=== PATIENT | female | born 1970 | race Two or more races ===

== ENCOUNTER 2021-01-23 02:48 | Inpatient (IN) | payer BC, OTHER ==
[~2021-01-23] VITALS: Ht 165.1 cm; Wt 79.3 kg
[2021-01-23 03:49] LABS: Basophils # (auto) 0.1 10 ^3/uL (0-0.2); Basophils % (auto) 0.4 % (0.0-2.0); Eosinophils # (auto) 0.1 10 ^3/uL (0-0.8); Hematocrit 43.8 % (36.0-46.0); Hemoglobin 14.7 g/dL (12.2-16.2); Lymphocytes # (auto) 2.1 10 ^3/uL (0.4-5.4); Lymphocytes % (auto) 15.9 % (10.0-50.0); Mean Corpuscular Hemoglobin 29.8 pg (28.0-32.0); Mean Corpuscular Hgb Conc. 33.7 g/dL (32.0-36.0); Mean Corpuscular Volume 88.6 fL (80.0-100.0); Monocytes # (auto) 0.5 10 ^3/uL (0-1.3); Monocytes % (auto) 3.8 % (0.0-12.0); Neutrophils # (auto) 10.6 10 ^3/uL (1.6-8.6); Neutrophils % (auto) 78.9 % (37.0-80.0); Nucleated Red Blood Cells % 0.1 %; Platelet Count (auto) 287 10^3/uL (140-450); Red Blood Cells 4.94 10^6/uL (4.0-5.20); Red Cell Distribution Width 13.2 % (11.8-14.3); White Blood Cell 13.4 10^3/uL (4.4-10.8)
[2021-01-23 04:06] LABS: Calcium 9.2 mg/dL (8.5-10.1); Potassium 3.3 mmol/L (3.5-5.1)
[2021-01-23 04:11] LABS: Albumin 4.1 g/dL (3.4-5.0); BUN/Creatinine Ratio 22.5; Bilirubin, Total 0.7 mg/dL (0.2-1.0); Total Protein 7.6 g/dL (6.4-8.2)
[2021-01-23] MEDS ORDERED: fentaNYL CITRATE 100 MCG/2 ML VL IV ONE (04:45)
[2021-01-23] MEDS ORDERED: ONDANSETRON HCL 4 MG/2 ML VIAL IV ONE ×2 (04:45→07:30)
[2021-01-23 05:21] LABS: Urine Bacteria FEW /hpf (None Seen); Urine Blood 3+ /uL (Negative); Urine Mucus FEW (None Seen); Urine Specific Gravity 1.021 (1.001-1.035); Urine WBC 47 /hpf (0 - 5)
[2021-01-23] MEDS ORDERED: IOHEXOL 300 MG/ML 100ML BOTTLE IJ ONE (05:48)
[2021-01-23] MEDS ORDERED: SODIUM CHLORIDE 0.9% 3,000 ML IV ONE (07:15)
[2021-01-23] MEDS ORDERED: cefTRIAXone 1GM/50ML D5W 50 ML IV ONE ×2 (07:30→13:45)
[2021-01-23] MEDS ORDERED: KETOROLAC TROMETH 30 MG/ML 1ML VIAL IV ONE (07:30)
[2021-01-23] MEDS ORDERED: TAMSULOSIN HYDROCHLORIDE 0.4 MG CAP PO ONE (07:30)
[2021-01-23] MEDS ORDERED: POTASSIUM EFFERVESENT TAB 25 MEQ PO ONE (07:30)
[2021-01-23] MEDS ORDERED: MORPHINE SULF INJ 2 MG/ML SYRINGE 1ML IV PRN ×4 (12:45→13:45)
[2021-01-23] MEDS ORDERED: NITROGLYCERIN 0.4 MG SL TAB SL PRN ×2 (12:45→13:45)
[2021-01-23] MEDS ORDERED: ONDANSETRON HCL 4 MG/2 ML VIAL IV PRN ×2 (13:15→13:45)
[2021-01-23] MEDS ORDERED: LORazepam 0.5 MG TAB PO PRN (13:45)
[2021-01-23] MEDS ORDERED: ALUM & MAG HYDROX-SIMETH LIQ(MAALOX) 30 ML PO PRN (13:45)
[2021-01-23] MEDS ORDERED: hydrALAZINE HCL 20 MG/ML VL IV PRN (13:45)
[2021-01-23] MEDS: SOD CHL 0.9%/ KCL 20MEQ 1,000 ML IV SCH ×2 (14:14→22:16)
[2021-01-23 14:49] VITALS: BP 129/73
[2021-01-23 14:51] LABS: Urine Bacteria FEW /hpf (None Seen); Urine Blood 3+ /uL (Negative); Urine Mucus FEW (None Seen); Urine Specific Gravity 1.022 (1.001-1.035); Urine WBC 55 /hpf (0 - 5)
[2021-01-23 14:59] LABS: Alcohol, Urine < 3.0 mg/dL (0-10); Amphetamine Screen, Urine NEGATIVE (NEGATIVE); Barbiturate Scree,Urine NEGATIVE (NEGATIVE); Benzodiazephine Screen, Urine NEGATIVE (NEGATIVE); Cannabinoid Screen, Urine POSITIVE (NEGATIVE); Cocaine Screen, Urine NEGATIVE (NEGATIVE); Opiate Scree,Urine NEGATIVE (NEGATIVE); Phencyclidine Screen, Urine NEGATIVE (NEGATIVE)
[2021-01-23] MEDS: HYDROcodone-ACET 5/325MG TAB PO PRN ×2 (15:24→22:15)
[2021-01-23] MEDS ORDERED: LISI-275 PO (15:26)
[2021-01-23] MEDS ORDERED: ESCI5TAB PO (15:26)
[2021-01-23] MEDS ORDERED: MULTTAB99 GT (15:26)
[2021-01-23] MEDS ORDERED: CHOL20007 PO (15:26)
[2021-01-23 16:16] LABS: Cholesterol 252 mg/dL (< 200); HDL Cholesterol 51 mg/dL (40-59); LDL Cholesterol 171 mg/dL (< 100); Triglycerides 193 mg/dL (< 150)
[2021-01-23 17:00] VITALS: BP 122/70
[2021-01-23] MEDS: ACETAMINOPHEN 325 MG TAB PO PRN (18:46)
[2021-01-23] MEDS: FAMOTIDINE (10MG/ML) 2ML VL IV SCH (21:43)
[2021-01-23] MEDS: ATORVASTATIN 20 MG TAB PO SCH ×2 (21:43→21:59)
[2021-01-23] MEDS: LISINOPRIL 5 MG TAB PO SCH (21:59)
[2021-01-23 22:41] VITALS: BP 129/81
[2021-01-24 05:00] VITALS: BP 141/86
[2021-01-24] MEDS: SOD CHL 0.9%/ KCL 20MEQ 1,000 ML IV SCH ×3 (06:09→22:49)
[2021-01-24 07:16] LABS: Basophils # (auto) 0 10 ^3/uL (0-0.2); Basophils % (auto) 0.7 % (0.0-2.0); Eosinophils # (auto) 0.1 10 ^3/uL (0-0.8); Eosinophils % (auto) 3.2 % (0.0-7.0); Hematocrit 39.5 % (36.0-46.0); Lymphocytes # (auto) 1.8 10 ^3/uL (0.4-5.4); Lymphocytes % (auto) 39.5 % (10.0-50.0); Mean Corpuscular Hemoglobin 31.4 pg (28.0-32.0); Mean Corpuscular Hgb Conc. 35.5 g/dL (32.0-36.0); Mean Corpuscular Volume 88.5 fL (80.0-100.0); Monocytes # (auto) 0.3 10 ^3/uL (0-1.3); Monocytes % (auto) 6.7 % (0.0-12.0); Neutrophils # (auto) 2.3 10 ^3/uL (1.6-8.6); Neutrophils % (auto) 49.9 % (37.0-80.0); Nucleated Red Blood Cells % 0.1 %; Platelet Count (auto) 220 10^3/uL (140-450); Red Blood Cells 4.47 10^6/uL (4.0-5.20); Red Cell Distribution Width 13.1 % (11.8-14.3); White Blood Cell 4.5 10^3/uL (4.4-10.8)
[2021-01-24 07:38] LABS: INR 0.97 (0.9-1.15); Partial Thromboplastin Time 26.1 sec (23.0-31.2)
[2021-01-24 07:41] LABS: Albumin 3.6 g/dL (3.4-5.0); Calcium 8.7 mg/dL (8.5-10.1); Magnesium 2.3 mg/dL (1.6-2.6); Potassium 4.1 mmol/L (3.5-5.1)
[2021-01-24 07:44] LABS: BUN/Creatinine Ratio 15.6; Phosphorus 3.1 mg/dL (2.5-4.90); Total Protein 6.8 g/dL (6.4-8.2)
[2021-01-24] MEDS: CALCIUM W/VIT D (600MG/400IU) TAB PO SCH (08:50)
[2021-01-24] MEDS: CEFTRIAXONE SODIUM 2 GM in D5W 5% 50 ML IV SCH (08:51)
[2021-01-24] MEDS: FAMOTIDINE (10MG/ML) 2ML VL IV SCH ×2 (08:52→21:48)
[2021-01-24] MEDS: ENOXAPARIN SOD 40 MG/0.4 ML SYRINGE SC SCH (08:53)
[2021-01-24 09:00] VITALS: BP 133/73
[2021-01-24] MEDS: ACETAMINOPHEN 325 MG TAB PO PRN ×2 (09:18→21:51)
[2021-01-24] MEDS ORDERED: CITALOPRAM HYDROBR 20 MG TAB PO SCH (10:00)
[2021-01-24 12:44] VITALS: BP 117/88
[2021-01-24] MEDS: HYDROcodone-ACET 5/325MG TAB PO PRN (15:23)
[2021-01-24 17:00] VITALS: BP 122/78
[2021-01-24] MEDS: DOCUSATE SOD 100 MG CAP PO PRN (18:45)
[2021-01-24] MEDS: ATORVASTATIN 20 MG TAB PO SCH (21:38)
[2021-01-24] MEDS: LISINOPRIL 5 MG TAB PO SCH (21:48)
[2021-01-24 22:00] VITALS: BP 139/77
[2021-01-25 05:24] VITALS: BP 137/78
[2021-01-25 05:42] LABS: Basophils # (auto) 0 10 ^3/uL (0-0.2); Basophils % (auto) 0.6 % (0.0-2.0); Eosinophils # (auto) 0.2 10 ^3/uL (0-0.8); Eosinophils % (auto) 3.7 % (0.0-7.0); Hematocrit 38.8 % (36.0-46.0); Hemoglobin 13.5 g/dL (12.2-16.2); Lymphocytes # (auto) 2.1 10 ^3/uL (0.4-5.4); Lymphocytes % (auto) 44.6 % (10.0-50.0); Mean Corpuscular Hemoglobin 30.8 pg (28.0-32.0); Mean Corpuscular Hgb Conc. 34.9 g/dL (32.0-36.0); Mean Corpuscular Volume 88.1 fL (80.0-100.0); Monocytes # (auto) 0.3 10 ^3/uL (0-1.3); Monocytes % (auto) 6.1 % (0.0-12.0); Neutrophils # (auto) 2.1 10 ^3/uL (1.6-8.6); Nucleated Red Blood Cells % 0.1 %; Platelet Count (auto) 229 10^3/uL (140-450); White Blood Cell 4.7 10^3/uL (4.4-10.8)
[2021-01-25 06:13] LABS: Potassium 3.9 mmol/L (3.5-5.1)
[2021-01-25 06:20] LABS: Albumin 3.3 g/dL (3.4-5.0); BUN/Creatinine Ratio 16.9; Calcium 8.4 mg/dL (8.5-10.1)
[2021-01-25 06:23] LABS: Bilirubin, Total 0.8 mg/dL (0.2-1.0); Total Protein 6.5 g/dL (6.4-8.2)
[2021-01-25] MEDS: CALCIUM W/VIT D (600MG/400IU) TAB PO SCH (09:17)
[2021-01-25] MEDS: ENOXAPARIN SOD 40 MG/0.4 ML SYRINGE SC SCH (09:18)
[2021-01-25 09:19] VITALS: BP 120/76
[2021-01-25] MEDS: FAMOTIDINE (10MG/ML) 2ML VL IV SCH ×2 (09:19→21:52)
[2021-01-25] MEDS: SOD CHL 0.9%/ KCL 20MEQ 1,000 ML IV SCH ×2 (09:19→15:45)
[2021-01-25] MEDS: HYDROcodone-ACET 5/325MG TAB PO PRN ×2 (10:33→11:39)
[2021-01-25] MEDS: CEFTRIAXONE SODIUM 2 GM in D5W 5% 50 ML IV SCH (11:39)
[2021-01-25 13:00] VITALS: BP 121/74
[2021-01-25 17:10] VITALS: BP 137/84
[2021-01-25] MEDS: ACETAMINOPHEN 325 MG TAB PO PRN (20:22)
[2021-01-25] MEDS: LISINOPRIL 5 MG TAB PO SCH (21:53)
[2021-01-25] MEDS: ATORVASTATIN 20 MG TAB PO SCH (21:53)
[2021-01-25 22:00] VITALS: BP 131/89
[2021-01-26 05:00] VITALS: BP 116/73
[2021-01-26 07:12] LABS: BUN/Creatinine Ratio 16.9; Calcium 9.3 mg/dL (8.5-10.1)
[2021-01-26 07:13] LABS: Basophils # (auto) 0 10 ^3/uL (0-0.2); Basophils % (auto) 0.3 % (0.0-2.0); Eosinophils # (auto) 0.2 10 ^3/uL (0-0.8); Eosinophils % (auto) 3.7 % (0.0-7.0); Hematocrit 41.8 % (36.0-46.0); Hemoglobin 14.7 g/dL (12.2-16.2); Lymphocytes # (auto) 2.1 10 ^3/uL (0.4-5.4); Lymphocytes % (auto) 39.3 % (10.0-50.0); Mean Corpuscular Hemoglobin 30.8 pg (28.0-32.0); Mean Corpuscular Volume 87.8 fL (80.0-100.0); Monocytes # (auto) 0.4 10 ^3/uL (0-1.3); Monocytes % (auto) 7.5 % (0.0-12.0); Neutrophils # (auto) 2.6 10 ^3/uL (1.6-8.6); Neutrophils % (auto) 49.2 % (37.0-80.0); Nucleated Red Blood Cells % 0.1 %; Platelet Count (auto) 255 10^3/uL (140-450); Red Blood Cells 4.76 10^6/uL (4.0-5.20); Red Cell Distribution Width 12.6 % (11.8-14.3); White Blood Cell 5.2 10^3/uL (4.4-10.8)
[2021-01-26 08:39] VITALS: BP 129/86
[2021-01-26] MEDS: ENOXAPARIN SOD 40 MG/0.4 ML SYRINGE SC SCH (08:47)
[2021-01-26] MEDS: CALCIUM W/VIT D (600MG/400IU) TAB PO SCH (08:48)
[2021-01-26] MEDS: DOCUSATE SOD 100 MG CAP PO PRN (08:48)
[2021-01-26] MEDS: ACETAMINOPHEN 325 MG TAB PO PRN (08:48)
[2021-01-26] MEDS: FAMOTIDINE (10MG/ML) 2ML VL IV SCH (08:56)
[2021-01-26] MEDS: CEFTRIAXONE SODIUM 2 GM in D5W 5% 50 ML IV SCH (10:23)
[2021-01-26 12:44] VITALS: BP 126/85
== END 2021-01-26 14:40 | disposition home or self-care (01) | DRG 872 ==
LOC: ER 02:54 → TELE 02:55 → TELE-WESTW 13:50
PROVIDERS: ADMIT Hospitalist; ATTEND Internal Medicine
DX: A41.9 Sepsis, unspecified organism (principal); N13.6 Pyonephrosis; N20.2 Calculus of kidney with calculus of ureter; E66.9 Obesity, unspecified; E78.5 Hyperlipidemia, unspecified; E87.6 Hypokalemia; F12.90 Cannabis use, unspecified, uncomplicated; F32.9 Major depressive disorder, single episode, unspecified; Z20.822 Contact with and (suspected) exposure to COVID-19; I10 Essential (primary) hypertension; K57.30 Diverticulosis of large intestine without perforation or abscess without bleeding; K76.0 Fatty (change of) liver, not elsewhere classified; Z80.0 Family history of malignant neoplasm of digestive organs; Z85.028 Personal history of other malignant neoplasm of stomach; Z87.442 Personal history of urinary calculi; Z68.29 Body mass index [BMI] 29.0-29.9, adult
CPT/HCPCS: 36415; 74177; 76775; 80048; 80053; 80061; 80307; 81001; 81025; 82306; 83036; 83690; 83735; 84100; 84443; 84484; 85025; 85610; 85730; 87040; 87086; 87426; 96365; 96375; G0378; J0696; J1885; J2405; J3490; J7060